=== PATIENT | male | born 1955 | race Hispanic/Latino ===

== ENCOUNTER 2020-04-28 07:08 | Observation (INO) | payer MEDICARE ==
[2020-04-23 16:25] LABS: ANION GAP 19.4 mmol/L (8-16); CALCIUM 10.4 mg/dL (8.4-10.2); CREATININE, SERUM 1.4 mg/dL (0.72-1.25)
[2020-04-23 16:28] LABS: POTASSIUM 5.4 mmol/L (3.5-5.1)
--- NOTE | 2020-04-23 16:39 | Diagnostic Imaging Report ---
Exam: CHEST 2 VIEWS Date: 04/23/2020 4:35 PM INDICATION: ^[id number] ^1600 ^OA RT KNEE Comparison: None FINDINGS: Lines/Tubes:None Lungs:The lungs are well inflated. No focal consolidation or pulmonary edema. Pleura:No pleural effusion. No pneumothorax. Eventration of the right hemidiaphragm is noted. Heart/Mediastinum:The cardiomediastinal silhouette is normal in size and contour. Bones/Soft Tissues: No acute osseous abnormality. Upper abdomen: Unremarkable. IMPRESSION: Negative for acute intrathoracic process. Signed by: Gautam Jameson MD on 04/23/2020 4:36 PM
[~2020-04-28] VITALS: Ht 165.1 cm; Wt 105.7 kg
[~2020-04-28 07:08] MED LIST: AMLODIPINE BESY10 MG PO; CRESTOR10 MG PO; SODIUM CHLORIDE 0.9% 500ML 500 ML ONE; SPIRONOLACTONE25 MG PO; TRANEXAMIC ACID 1,000 MG/10 ML ML ONE; VANCOMYCIN HCL 1,000 MG ONE; VIT D PO
[2020-04-28] MEDS ORDERED: CELECOXIB 200 MG CAP ONE (07:41)
[2020-04-28] MEDS ORDERED: CEFAZOLIN SOD 1 GM/NS 50ML 100 ML IV ONE (07:41)
[2020-04-28] MEDS ORDERED: DEXAMETHASONE SOD PHOS 10 MG/1 ML VIAL ONE (07:41)
[2020-04-28] MEDS ORDERED: GABAPENTIN 300 MG CAP ONE (07:41)
[2020-04-28] MEDS ORDERED: ROPIVACAINE 246.25 MG, EPINEPHRINE HCL 1:1000 1ML 0.5 MG, CLONIDINE HCL 0.08 MG, KETORO... INJ ONE ×5 (08:00)
[2020-04-28 08:08] LABS: ANION GAP 17.1 mmol/L (8-16); BLOOD UREA NITROGEN 14 mg/dL (7-26); BUN/CREATININE RATIO 14 (6-25); CALCIUM 9.2 mg/dL (8.4-10.2); CARBON DIOXIDE 23 mmol/L (22-29); CHLORIDE 99 mmol/L (98-107); CREATININE, SERUM 0.97 mg/dL (0.72-1.25); EST GLOMERULAR FILTRATION RATE > 60 ML/MIN (60-); GLUCOSE 149 mg/dL (74-118); POTASSIUM 4.1 mmol/L (3.5-5.1); SODIUM 135 mmol/L (136-145)
[2020-04-28] MEDS: SODIUM CHLORIDE 0.9% 1000ML 1,000 ML IV SCH ×2 (10:30→14:43)
[2020-04-28] MEDS ORDERED: ONDANSETRON HCL INJ 2MG/ML 2ML 2 MG/ML VIAL IV PRN (10:30)
[2020-04-28] MEDS ORDERED: HYDROCODONE/APAP 5MG-325MG TAB PO PRN (10:30)
[2020-04-28] MEDS ORDERED: HYDROCODONE/APAP 7.5MG-325MG 1 EA TAB PO PRN (10:30)
[2020-04-28] MEDS ORDERED: KETOROLAC TROMETHAMINE 30 MG/ML VIAL IV PRN (10:30)
[2020-04-28] MEDS ORDERED: DIPHENHYDRAMINE HCL INJ 50 MG/ML VIAL IV PRN (10:30)
[2020-04-28] MEDS ORDERED: DOCUSATE SODIUM 100 MG CAP PO PRN (10:30)
[2020-04-28] MEDS ORDERED: ACETAMINOPHEN 650 MG SUPP PR PRN (10:30)
[2020-04-28] MEDS ORDERED: FENTANYL CITRATE/PF 100MCG/2 ML INJ ONE (11:01)
--- NOTE | 2020-04-28 11:18 | Diagnostic Imaging Report ---
EXAMINATION: KNEE RIGHT 1-2 VIEWS INDICATION: Postoperative COMPARISON: None FINDINGS: AP and lateral radiographs of the right knee demonstrate immediate postoperative findings of right total knee replacement. Alignment is anatomic. No unexpected fracture. Postoperative subcutaneous soft tissue emphysema and small joint effusion. Surgical skin hanh in place. IMPRESSION: Anatomic alignment status post right total knee replacement. Signed by: Gian Crawford MD on 04/28/2020 11:15 AM
[2020-04-28 12:44] VITALS: BP_SYST 126; BP_SYST 127; BP_DIAS 72; BP_DIAS 76
--- NOTE | 2020-04-28 13:21 | NUR ---
DR HURLEY OFFICE PREARRANGED FOLLOWING DISCHARGE PLAN OF: HOME [address], [place] [address] HOME HEALTH WITH HOME CARE PROVIDERS CONFIRMED WITH [employer] [phone] DME 3 IN ONE COMMODE, CPM AND ROLLING WALKER WITH WHEELS. PROVIDED BY [employer] [phone] TOMAS SIGNED AND ON CHART COPY LEFT WITH PATIENT GAVE CARD FOR QUESTIONS AND OR CONCERNS.
--- NOTE | 2020-04-28 13:49 | Operative Report ---
DATE OF PROCEDURE: 04/28/2020 SURGEON: Maxi Garcia MD VICE PRESIDENT OF INSTRUCTION: Homero Fu, certified PA. PREOPERATIVE DIAGNOSIS: Osteoarthritis, right knee. POSTOPERATIVE DIAGNOSIS: Osteoarthritis, right knee. PROCEDURE: Right total knee arthroplasty. INDICATIONS: The patient is a 65-year-old gentleman with end-stage arthritis in his right knee. He has failed conservative management and would like to proceed with a right total knee replacement. The risks and benefits have been explained in detail. All of his questions have been answered. The implants, hospital stay, and recovery have been discussed. He states he understands and wishes to proceed. PROCEDURE IN DETAIL: The patient was brought to the operating room and placed under general anesthetic. He received prophylactic antibiotics, a regional block and tranexamic acid in the holding area. His right lower extremity was prepped and draped in a sterile manner. A preoperative time-out was performed. The extremity was exsanguinated and a proximal tourniquet was inflated to 300 mmHg. An anterior incision with a medial parapatellar arthrotomy was performed. Clear synovial fluid was evacuated from the joint. Soft tissue releases were performed to bring the knee up into flexion with the patella everted. In the cruciate ligaments, marginal osteophytes and meniscal remnants were excised. A Jania [employer] Persona medial congruent knee system was used. An extramedullary cutting guide was used to resect the proximal tibia. A 4 mm cut was referenced off the most affected medial compartment. The tibial base plate was noted to be a size G. The central fin punch was drilled and impacted. Attention was directed towards the distal femur. An intramedullary cutting guide was used to resect the distal femur in 5 degrees of valgus and rotation referencing off a combination of landmarks including Whitesides line, the epicondylar axis, and the posterior condyles. The femoral component was a size 10. The anterior and posterior cuts were made. Trial reductions were performed. A 10 mm medial congruent insert provided appropriate soft tissue balancing in full extension and 90 degrees of flexion. The patella was resurfaced with a 38 mm x 9.5 mm patellar button. The thickness was checked before and after and was right around 25 mm. Patellar tracking was noted to be concentric. The trial implants were then all removed. A 100 mL premixed pericapsular NICOLA injection was placed into the surrounding soft tissue. The knee was thoroughly irrigated with a shower tip pulsatile lavage. All bone cuts had been irrigated with a spray mixture of diluted vancomycin and polymyxin spray. The components were cemented into place using a single mix of high viscosity Biomet cement preloaded with antibiotics. Care was taken to remove extravasated cement. The wound was further irrigated while the cement cured. The arthrotomy was then closed using interrupted #1 Ethibond. A 500 mg of vancomycin powder was sprinkled into the wound prior to closure. The knee was put through flexion and extension to ensure a secure closure. The skin was closed with subcuticular Vicryl and hanh. A sterile Aquacel bandage was applied. The patient was extubated and transported to the recovery room in stable condition. Blood loss was minimal. All needle and sponge counts were correct. Maxi Garcia MD DR/NELSON /[id number]
[2020-04-28] MEDS ORDERED: SEVOFLURANE INHAL SOLN 250 ML PEN BTL ONE (14:18)
[2020-04-28] MEDS ORDERED: ONDANSETRON HCL INJ 2MG/ML 2ML 2 MG/ML VIAL ONE (14:18)
[2020-04-28] MEDS ORDERED: LIDOCAINE HCL 2% LOCAL INJ 5 ML SDV VIAL INJ ONE (14:18)
[2020-04-28] MEDS ORDERED: PROPOFOL IV EMULSION 10 MG/ML 20 ML VIAL ONE (14:18)
[2020-04-28] MEDS: CEFAZOLIN SOD 1 GM/NS 50ML 50 ML IV SCH ×2 (14:43→22:23)
[2020-04-28 16:20] VITALS: BP 125/78
[2020-04-28] MEDS: ASPIRIN 325 MG TAB PO SCH (16:35)
[2020-04-28] MEDS ORDERED: CELECOXIB 100 MG CAP PO SCH (17:00)
--- NOTE | 2020-04-28 18:05 | Consultation ---
DATE OF CONSULTATION: REASON FOR CONSULTATION: Medical management. HISTORY OF PRESENT ILLNESS: This is a 65-year-old man, who was admitted to [facility] with diagnosis of advanced right knee degenerative joint disease. Today, the patient underwent successful right total knee arthroplasty, which was performed by Dr. Maxi Garcia, his orthopedic surgeon. The patient tolerated surgery quite well. He states currently his pain is well controlled. On April 23, 2020, the patient was found to have BUN and creatinine of 30 and 1.4 respectively. Potassium 5.4. This blood was repeated today this morning and potassium is 4.1, BUN and creatinine is 14 and 0.97 respectively. Of note, patient's COVID-19 test was negative on April 23, 2020. REVIEW OF SYSTEMS: GENERAL: Weight is stable. No fever or chills. HEENT: No headaches, no visual changes. CARDIOVASCULAR/RESPIRATORY: No chest pain, no shortness of breath or cough. GI: No nausea or vomiting or constipation. : No dysuria, hematuria. No Pinto catheter in place. NEUROMUSCULAR: No limb weakness or numbness. The patient states his pain in his right knee joint is controlled. ALLERGIES: NO KNOWN DRUG ALLERGIES. MEDICATIONS: 1. Amlodipine 10 mg daily. 2. Rosuvastatin 20 mg at bedtime. 3. Spironolactone 25 mg daily. 4. Vitamin D3 of 2000 units daily. PAST MEDICAL HISTORY: 1. Hypertensive heart disease. 2. Hyperlipidemia. 3. Obesity. 4. Right knee degenerative joint disease. PAST SURGICAL HISTORY: 1. Left shoulder surgery. 2. Left hernia repair. FAMILY HISTORY: Noncontributory. SOCIAL HISTORY: He is with his . He is retired. The patient denies any tobacco, alcohol use. PHYSICAL EXAMINATION: GENERAL: He is awake, alert, fully oriented. He is in no distress. Height 5 feet 5 inches, weight is 233 pounds, and BMI 38. VITAL SIGNS: Blood pressure is 126/78, pulse 62, respiratory rate 18, temperature 97.9, oxygen saturation is 98% on room air. INTEGUMENT/SKIN: Warm and dry. No pallor, jaundice or diaphoresis. HEENT: Anterior sclerae. Moist mucous membranes. NECK: Supple. CARDIOVASCULAR: Distant heart sounds. Regular rate and rhythm. LUNGS: No rales, no rhonchi or wheezes. ABDOMEN: Obese, benign. EXTREMITIES: The patient's right knee is currently dressed. The patient currently has compression stocking in the left lower leg. NEURO: No focal deficits are appreciated. DIAGNOSES: 1. Status post right total knee arthroplasty. 2. Hypertensive heart disease. 3. Stage 1 chronic kidney disease. 4. Obesity, BMI 38. PLAN: 1. Mobilize the patient with therapy. 2. Pain control. 3. Encourage incentive spirometer usage to help prevent atelectasis. 4. Pain control. 5. Blood pressure control. I would like to thank, Dr. Garcia, for this generous consult. I spent 45 minutes in the care of this patient. MD COLETTE Pickett/NELSON /[id number] MTDD
[2020-04-28] MEDS ORDERED: ROPIVACAINE 0.5% 5 MG/ML 30 ML SDV ONE (19:58)
[2020-04-28 20:00] VITALS: BP 127/80
[2020-04-28] MEDS ORDERED: ZOLPIDEM TARTRATE 5 MG TAB PO PRN (21:00)
[2020-04-29] VITALS: BP 106/66
[2020-04-29 04:00] VITALS: BP 114/68
[2020-04-29 04:53] LABS: BASOPHILS % 0.2 % (0.0-1.0); HEMATOCRIT 34.3 % (38.2-49.6); HEMOGLOBIN 11.5 g/dL (14.0-18.0); LYMPHOCYTES # (AUTO) 1.3 (1.0-3.2); LYMPHOCYTES % 10.5 % (18.0-39.1); MEAN CORPUSCULAR HEMOGLOBIN 29.5 pg (28-32); MEAN CORPUSCULAR HGB CONC 33.5 g/dL (31-35); MEAN CORPUSCULAR VOLUME 87.9 fL (81-99); NEUTROPHILS # (AUTO) 10.1 (2.1-6.9); NEUTROPHILS % 80.8 % (38.7-80.0); PLATELET COUNT 137 x10e3/uL (140-360); RED CELL DISTRIBUTION WIDTH 13.1 % (11.7-14.4)
[2020-04-29 05:13] LABS: ALANINE AMINOTRANSFERASE 18 IU/L (0-55); ALBUMIN 3.4 g/dL (3.5-5.0); ALBUMIN/GLOBULIN RATIO 1.3 (0.8-2.0); ALKALINE PHOSPHATASE 51 IU/L (40-150); ANION GAP 17.8 mmol/L (8-16); BLOOD UREA NITROGEN 21 mg/dL (7-26); BUN/CREATININE RATIO 18 (6-25); CALCIUM 8.7 mg/dL (8.4-10.2); CARBON DIOXIDE 20 mmol/L (22-29); CHLORIDE 99 mmol/L (98-107); CREATININE, SERUM 1.17 mg/dL (0.72-1.25); EST GLOMERULAR FILTRATION RATE > 60 ML/MIN (60-); GLUCOSE 305 mg/dL (74-118); POTASSIUM 4.8 mmol/L (3.5-5.1); SODIUM 132 mmol/L (136-145)
[2020-04-29] MEDS: SODIUM CHLORIDE 0.9% 1000ML 1,000 ML IV SCH (05:25)
[2020-04-29] MEDS: CEFAZOLIN SOD 1 GM/NS 50ML 50 ML IV SCH (05:25)
--- NOTE | 2020-04-29 06:36 | NUR ---
Oscar wraps removed from right leg, aquacell dressing c/d/i. edema +1 noticed. frederic sears applied.
--- NOTE | 2020-04-29 07:39 | Progress Note ---
DATE: 04/29/2020 CHIEF COMPLAINT/HISTORY OF PRESENT ILLNESS: A 65-year-old man, who underwent a successful right total knee arthroplasty yesterday, Monday, April 28, 2020. The patient voiced no complaints. The patient states the pain is well controlled. The patient states he did ambulate yesterday with therapy. The patient is currently on the continuous passive motion machine. Blood work today revealed white blood cell count 12,400 with 80% segmented neutrophils. Hemoglobin 11.5 g/dL. The patient's BUN and creatinine are 21 and 1.17 respectively. REVIEW OF SYSTEMS: As per HPI. PHYSICAL EXAMINATION: GENERAL: The patient is awake, alert, and fully oriented. He is very pleasant and cooperative on exam. VITAL SIGNS: Blood pressure is 114/68, pulse 62, respiratory rate 18, temperature 98.4, and oxygen saturation 98% on room air. Height 5 feet 5 inches, weight is 233 pounds. BMI is 38. INTEGUMENT: Skin is warm and dry. No pallor, jaundice, or diaphoresis. HEENT: Anterior sclerae, moist mucous membranes. NECK: Supple. CARDIOVASCULAR: Distant heart sounds. Regular rate and rhythm. LUNGS: No rales, no rhonchi, no wheezes. ABDOMEN: Obese benign. EXTREMITIES: The patient's right knee is currently dressed. The patient currently has a compression stocking on the left lower leg. Currently, his right lower extremity is in a continuous passive motion machine as previously stated. NEUROLOGIC: No focal deficits appreciated. DIAGNOSES: 1. Status post right total knee arthroplasty. 2. Hypertensive heart disease. 3. Stage 1 chronic kidney disease. 4. Obesity, BMI 38. PLAN: 1. Mobilize with therapy today. 2. Pain control. 3. Blood pressure control. 4. Encourage continued incentive spirometer usage to help prevent atelectasis. 5. Discharge planning for later today. I spent 25 minutes in the care of the patient. MD COLETTE Pickett/NELSON /[id number] SAMUEL
[2020-04-29 07:59] VITALS: BP 122/69
[2020-04-29] MEDS: ASPIRIN 325 MG TAB PO SCH (08:29)
[2020-04-29] MEDS ORDERED: CELECOXIB 200 MG CAP PO SCH (09:00)
[2020-04-29 09:03] VITALS: BP 122/69
--- NOTE | 2020-04-29 10:12 | NUR ---
PATIENT DISCHARGED AFTER THERAPY. PT CLEAR ON DISCHARGE INSTRUCTIONS AND FOLLOW UP APPT NEEDED. PT AWARE TO PHYSICIAN ASSISTANT PRESCRIPTIONS AT PHARMACY. PT VERBALIZED UNDERSTANDING OF ALL EQUIPMENT DELIVERED FOR PATIENT. PATIENT WHEELED OFF UNIT WITH ALL BELONGINGS.
[2020-04-29] MEDS ORDERED: ACETAMINOPHEN 1000 MG/100 ML IV PRN (10:30)
== END 2020-04-29 10:12 | disposition home or self-care (01) ==
LOC: OR 07:08 → PACU V 10:26 → MED/SURG 12:28
PROVIDERS: ADMIT Specialist; ATTEND Specialist
DX: M17.11 Unilateral primary osteoarthritis, right knee (principal); E66.9 Obesity, unspecified; Z68.38 Body mass index [BMI] 38.0-38.9, adult; E78.5 Hyperlipidemia, unspecified; I13.10 Hypertensive heart and chronic kidney disease without heart failure, with stage 1 through stage 4 chronic kidney disease, or unspecified chronic kidney disease; N18.1 Chronic kidney disease, stage 1; Z11.59 Encounter for screening for other viral diseases
CPT/HCPCS: 27447; 36415 ×3; 71046; 73560; 80048 ×2; 80053; 85025; 86850; 86900; 86920 ×2; 97110; 97116 ×2; 97161; C1713; C1776 ×3; G0378 ×2; J0171; J0690 ×2; J1100; J1885; J2001; J2405; J2704; J2795; J3010; J3370; J7030; J7040; U0002

== ENCOUNTER 2020-09-14 05:32 | Observation (INO) | payer MEDICARE ==
[2020-09-10 08:25] LABS: BASOPHILS # (AUTO) 0.1 (0.0-0.1); BASOPHILS % 0.7 % (0.0-1.0); EOSINOPHILS # (AUTO) 0.1 (0.0-0.4); EOSINOPHILS % 2.1 % (0.0-6.0); HEMATOCRIT 41.9 % (38.2-49.6); HEMOGLOBIN 14.3 g/dL (14.0-18.0); LYMPHOCYTES # (AUTO) 2.1 (1.0-3.2); LYMPHOCYTES % 31.3 % (18.0-39.1); MEAN CORPUSCULAR HEMOGLOBIN 30.5 pg (28-32); MEAN CORPUSCULAR HGB CONC 34.1 g/dL (31-35); MEAN CORPUSCULAR VOLUME 89.3 fL (81-99); MONOCYTES # (AUTO) 0.7 (0.2-0.8); MONOCYTES % 10.8 % (4.4-11.3); NEUTROPHILS # (AUTO) 3.7 (2.1-6.9); NEUTROPHILS % 54.7 % (38.7-80.0); PLATELET COUNT 184 x10e3/uL (140-360); RED BLOOD COUNT 4.69 x10e6/uL (4.3-5.7)
[2020-09-10 08:45] LABS: ANION GAP 14.6 mmol/L (8-16); BLOOD UREA NITROGEN 18 mg/dL (7-26); BUN/CREATININE RATIO 17 (6-25); CALCIUM 9.6 mg/dL (8.4-10.2); CARBON DIOXIDE 27 mmol/L (22-29); CHLORIDE 99 mmol/L (98-107); CREATININE, SERUM 1.06 mg/dL (0.72-1.25); EST GLOMERULAR FILTRATION RATE > 60 ML/MIN (60-); GLUCOSE 131 mg/dL (74-118); POTASSIUM 4.6 mmol/L (3.5-5.1); SODIUM 136 mmol/L (136-145)
[~2020-09-14] VITALS: Ht 165.1 cm; Wt 108.4 kg
[~2020-09-14 05:32] MED LIST changes: +ASPIRIN EC81 MG PO; +CANDESARTAN-HC1 EAC1 PO; -SODIUM CHLORIDE 0.9% 500ML 500 ML ONE; -TRANEXAMIC ACID 1,000 MG/10 ML ML ONE; -VANCOMYCIN HCL 1,000 MG ONE
[2020-09-14] MEDS ORDERED: CELECOXIB 200 MG CAP ONE (05:51)
[2020-09-14] MEDS ORDERED: GABAPENTIN 300 MG CAP ONE (05:51)
[2020-09-14] MEDS ORDERED: DEXAMETHASONE SOD PHOS 10 MG/1 ML VIAL ONE (05:51)
[2020-09-14] MEDS ORDERED: CEFAZOLIN SOD 1 GM/NS 50ML 100 ML IV ONE (05:52)
[2020-09-14] MEDS ORDERED: VANCOMYCIN HCL 1,000 MG ONE (06:19)
[2020-09-14] MEDS ORDERED: SODIUM CHLORIDE 0.9% 500ML 500 ML ONE (06:19)
[2020-09-14] MEDS ORDERED: TRANEXAMIC ACID 1,000 MG/10 ML ML ONE (06:19)
[2020-09-14] MEDS ORDERED: MIDAZOLAM HCL 2 MG/2 ML VIAL ONE (06:56)
[2020-09-14] MEDS ORDERED: FENTANYL CITRATE/PF 100MCG/2 ML INJ ONE (06:56)
[2020-09-14] MEDS ORDERED: ROPIVACAINE 246.25 MG, EPINEPHRINE HCL 1:1000 1ML 0.5 MG, CLONIDINE HCL 0.08 MG, KETORO... INJ ONE ×5 (08:00)
[2020-09-14] MEDS ORDERED: HYDROCODONE/APAP 5MG-325MG TAB PO PRN (08:45)
[2020-09-14] MEDS ORDERED: KETOROLAC TROMETHAMINE 30 MG/ML VIAL IV PRN (08:45)
[2020-09-14] MEDS ORDERED: ACETAMINOPHEN 650 MG SUPP PR PRN (08:45)
[2020-09-14] MEDS ORDERED: ZOLPIDEM TARTRATE 5 MG TAB PO PRN (08:45)
[2020-09-14] MEDS ORDERED: HYDROCODONE/APAP 7.5MG-325MG 1 EA TAB PO PRN (08:45)
[2020-09-14] MEDS ORDERED: DOCUSATE SODIUM 100 MG CAP PO PRN (08:45)
[2020-09-14] MEDS ORDERED: ONDANSETRON HCL INJ 2MG/ML 2ML 2 MG/ML VIAL IV PRN (08:45)
[2020-09-14] MEDS ORDERED: DIPHENHYDRAMINE HCL INJ 50 MG/ML VIAL IV PRN (08:45)
[2020-09-14 10:15] VITALS: BP 123/68
[2020-09-14] MEDS: CELECOXIB 200 MG CAP PO SCH ×2 (11:05→16:20)
[2020-09-14] MEDS: SODIUM CHLORIDE 0.9% 1000ML 1,000 ML IV SCH ×2 (11:05→21:00)
[2020-09-14] MEDS: ASPIRIN 325 MG TAB PO SCH ×2 (11:05→16:20)
[2020-09-14 11:46] VITALS: BP 123/68
[2020-09-14] MEDS ORDERED: ROPIVACAINE 0.5% 5 MG/ML 30 ML SDV ONE (12:21)
[2020-09-14] MEDS ORDERED: LIDOCAINE HCL 2% JELLY 5 ML TUBE ONE (13:17)
[2020-09-14] MEDS ORDERED: SEVOFLURANE INHAL SOLN 250 ML PEN BTL ONE (13:17)
[2020-09-14] MEDS ORDERED: PROPOFOL IV EMULSION 10 MG/ML 20 ML VIAL ONE (13:17)
[2020-09-14] MEDS ORDERED: EPHEDRINE SULFATE INJ 50 MG/ML VIAL ONE (13:17)
[2020-09-14] MEDS ORDERED: LIDOCAINE HCL 2% LOCAL INJ 5 ML SDV VIAL INJ ONE (13:17)
[2020-09-14] MEDS ORDERED: ONDANSETRON HCL INJ 2MG/ML 2ML 2 MG/ML VIAL ONE (13:17)
[2020-09-14] MEDS ORDERED: DEXAMETHASONE SOD PHOS INJ 4 MG/ML VIAL ONE (13:17)
[2020-09-14 15:40] VITALS: BP 118/76
[2020-09-14] MEDS: CEFAZOLIN SOD 1 GM/NS 50ML 50 ML IV SCH ×2 (16:20→23:10)
[2020-09-14 19:57] VITALS: BP 108/72
[2020-09-14 20:21] VITALS: BP 108/72
[2020-09-14 23:53] VITALS: BP 96/64
[2020-09-15 04:57] VITALS: BP 94/62
[2020-09-15] MEDS: SODIUM CHLORIDE 0.9% 1000ML 1,000 ML IV SCH (05:24)
[2020-09-15 06:27] LABS: HEMATOCRIT 36.3 % (38.2-49.6); HEMOGLOBIN 12.4 g/dL (14.0-18.0)
[2020-09-15 07:29] VITALS: BP 101/73
[2020-09-15] MEDS: CEFAZOLIN SOD 1 GM/NS 50ML 50 ML IV SCH (08:41)
[2020-09-15] MEDS: ASPIRIN 325 MG TAB PO SCH (08:41)
[2020-09-15] MEDS: CELECOXIB 200 MG CAP PO SCH (08:41)
[2020-09-15] MEDS ORDERED: ACETAMINOPHEN 1000 MG/100 ML IV PRN (08:45)
[2020-09-15 08:48] VITALS: BP 101/73
[2020-09-15 11:25] VITALS: BP 125/70
== END 2020-09-15 11:45 | disposition home or self-care (01) ==
LOC: OR 05:32 → PACU V 09:03 → MED/SURG 09:45
PROVIDERS: ADMIT Specialist; ATTEND Specialist
DX: M17.0 Bilateral primary osteoarthritis of knee (principal); Z20.822 Contact with and (suspected) exposure to COVID-19; I10 Essential (primary) hypertension; D64.9 Anemia, unspecified
CPT/HCPCS: 27447; 36415; 73560; 80048; 85025; 86850; 86900; 86920; 97116; 97161; J0171; J0690; J1100; J1885; J2250; J2795; J3010; J3370; J7030; J7040; U0002